=== PATIENT | male | born 1980 | race African-American/Black ===

== ENCOUNTER 2017-02-20 11:27 | Emergency (ER) | payer OTHER ==
[2017-02-20 11:37] VITALS: BP 113/64
--- NOTE | 2017-02-20 12:15 | UC ---
Throat Pain/Nasal Mike HPI - HPI Summary HPI Summary: 36 y/o male presents to the urgent care s/o sore throat taht is worse at night time for the past 3 weeks. He states he took some of his friend Rx Amoxicillin x 5 days and symptoms were improving. However now symptoms have worsen with low grade fever and dry cough. Pain is 7/10 with swallowing. He request ABx Tx. Pt denies SOB, chest pain, abdominal pain, N/V/D - History of Current Complaint Hx Obtained From: Patient Onset/Duration: Gradual Onset, Lasting Weeks - 3 weeks, Still Present, Worse Since - 3 days Severity: Moderate Pain Intensity: 7 Pain Scale Used: 0-10 Numeric Cough: Nonproductive Associated Signs & Symptoms: Positive: Nasal Discharge, Fever. Negative: Sinus Discomfort - Epiglottits Risk Factors Epiglottis Risk Factors: Negative <Theresa Gonzalez - Last Filed: 02/22/17 17:44> <Jacqueline Badillo - Last Filed: 02/25/17 14:51> - History of Current Complaint Chief Complaint: UCRespiratory Stated Complaint: SORE THROAT, FEVER Time Seen by Provider: 02/20/17 12:05 - Allergies/Home Medications Allergies/Adverse Reactions: Allergies Allergy/AdvReac Type Severity Reaction Status Date / Time No Known Allergies Allergy Verified 02/20/17 11:37 PMH/Surg Hx/FS Hx/Imm Hx Previously Healthy: Yes - Pt denies PMHX - Surgical History Surgical History: Yes Surgery Procedure, Year, and Place: R knee - Family History Known Family History: Positive: None - Pt denies FMHX - Social History Occupation: Employed Full-time Lives: With Family Alcohol Use: None Substance Use Type: None Smoking Status (MU): Never Smoked Tobacco <Theresa Gonzalez - Last Filed: 02/22/17 17:44> Review of Systems Constitutional: Fever - low grade fever Skin: Negative Eyes: Negative ENT: Sore Throat, Nasal Discharge Respiratory: Cough Cardiovascular: Negative Gastrointestinal: Negative Genitourinary: Negative Motor: Negative Neurovascular: Negative Musculoskeletal: Negative Neurological: Negative Psychological: Negative Is Patient Immunocompromised?: No All Other Systems Reviewed And Are Negative: Yes <Theresa Gonzalez - Last Filed: 02/22/17 17:44> Physical Exam Triage Information Reviewed: Yes Vital Signs: Initial Vital Signs Temp 97.5 F 02/20/17 11:31 Pulse 67 02/20/17 11:31 Resp 14 02/20/17 11:31 BP 113/64 02/20/17 11:31 Pulse Ox 100 02/20/17 11:31 - Additional Comments VITAL SIGNS: Reviewed. GENERAL: Patient is a well developed and nourished male who is sitting comfortable in the examining table. Patient is not in any acute respiratory distress. HEAD AND FACE: No signs of trauma. No ecchymosis, hematomas or skull depressions. No sinus tenderness. EYES: PERRLA, EOMI x 2, No injected conjunctiva, no nystagmus. No photophobia. EARS: Hearing grossly intact. Ear canals and tympanic membranes are within normal limits. Nose: erythematous nasal mucosa with yellowish nasal discharge MOUTH: Positive pharynx with erythema, no exudates,mild palatal petechiae. B/L tonsillar enlargement with no exudate. Uvula in midline. NECK: Supple, trachea is midline, Positive anterior cervical lymphadenopathy, no JVD, no carotid bruit, no c-spine tenderness, neck with full ROM. No meningeal signs, no Kernig's or brudzinskis signs. CHEST: Symmetric, no tenderness at palpation LUNGS: Clear to auscultation bilaterally. No wheezing or crackles. CVS: Regular rate and rhythm, S1 and S2 present, no murmurs or gallops appreciated. ABDOMEN: Soft, non-tender. No signs of distention. No rebound no guarding, and no masses palpated. Bowel sounds are normal. EXTREMITIES: FROM in all major joints, no edema, no cyanosis or clubbing. NEURO: Alert and oriented x 3. No acute neurological deficits. Speech is normal and follows commands. SKIN: Dry and warm <Theresa Gonzalez - Last Filed: 02/22/17 17:44> Vital Signs: Initial Vital Signs Temp 97.5 F 02/20/17 11:31 Pulse 67 02/20/17 11:31 Resp 14 02/20/17 11:31 BP 113/64 02/20/17 11:31 Pulse Ox 100 02/20/17 11:31 <Jacqueline Badillo - Last Filed: 02/25/17 14:51> Throat Pain/Nasal Course/Dx - Course Course Of Treatment: 36 y/o male presents to the urgent care s/o sore throat taht is worse at night time for the past 3 weeks. He states he took some of his friend Rx Amoxicillin x 5 days and symptoms were improving. However now symptoms have worsen with low grade fever and dry cough. Pain is 7/10 with swallowing. He request ABx Tx. Pt denies SOB, chest pain, abdominal pain, N/V/ D. Hx obtained.Pt with pharyngitis on examination. Pt offered Rapid strep to r/ o Strep pharyngitis. Pt declined. He requeste ABX Tx. Pt Rx Amoxicillin PO and Ibuprofen PO to alleviates symptoms of pain and swelling. Advised on hand washing to avoid spreading. Pt advised to rest, eat well and avoid strenuous exercise. If symptoms do not improve or worsen advised to return to the urgent care or f/u with her PCP for further evaluation and treatment. Pt understood and agreed with D/C instructions - Differential Dx/Diagnosis Differential Diagnosis/HQI/PQRI: Influenza, Laryngitis, Mononucleosis, Peritonsillar Abscess, Pharyngitis, Sinusitis, Tonsillitis, URI Provider Diagnoses: 1- Pharyngitis <Theresa Gonzalez - Last Filed: 02/22/17 17:44> Discharge <Theresa Gonzalez - Last Filed: 02/22/17 17:44> <Jacqueline Badillo - Last Filed: 02/25/17 14:51> - Discharge Plan Condition: Stable Disposition: HOME Prescriptions: Amoxicillin PO (*) [Amoxicillin 875 MG (*)] 875 mg PO BID #20 tab Ibuprofen TAB* [Motrin TAB* 800 MG] 800 mg PO Q6H PRN #20 tab PRN Reason: Pain Omeprazole CAP* [Prilosec CAP* 20 MG] 20 mg PO DAILY #30 cap. Patient Education Materials: Pharyngitis (ED) Referrals: [facility] [place] [facility] [place] [facility] [Outside] - If Needed Additional Instructions: 1- Please take the full course of the antibiotic to avoid resistance. 2-Please take ibuprofen PO q6-8hrs prn as instructed after meals to alleviate pain and swelling. Take Omeprazole to protect your stomach .Increase fluid intake, eat well, rest and avoid strenuous exercise 3-If symptoms do not improve or worsen please return to the urgent care or f/u with your PCP for further evaluation and treatment. Attestation Statement User Type: Provider - I was available for consult. This patient was seen by the VENANCIO. The patient was not presented to, seen by, or examined by me. -Gina <Jacqueline Badillo - Last Filed: 02/25/17 14:51>
== END 2017-02-20 12:59 | disposition home or self-care (01) ==
LOC: UCEAST 11:27
DX: J02.9 Acute pharyngitis, unspecified (principal); R09.81 Nasal congestion; R50.9 Fever, unspecified
CPT/HCPCS: 99212; G0463